=== PATIENT | male | born 1950 | race Caucasian/White ===

== ENCOUNTER → 2021-06-13 10:14 | Outpatient (BNVA) | payer OTHER, SELFPAY | PROVIDERS: PCP Internal Medicine; Visit Provider Psychiatry & Neurology Neurology | DX: G62.9 Polyneuropathy, unspecified (principal); G47.00 Insomnia, unspecified | CPT/HCPCS: 99212 ==

== ENCOUNTER → 2021-07-18 09:48 | Outpatient (BNVA) | payer MEDICARE, MEDICAID, SELFPAY | PROVIDERS: PCP Internal Medicine; Visit Provider Psychiatry & Neurology Neurology | DX: G62.9 Polyneuropathy, unspecified (principal); G47.00 Insomnia, unspecified | CPT/HCPCS: Q3014 ==

== ENCOUNTER → 2021-09-19 10:23 | Outpatient (BNVA) | payer MEDICARE, MEDICAID, SELFPAY | PROVIDERS: PCP Internal Medicine; Visit Provider Psychiatry & Neurology Neurology | DX: G62.9 Polyneuropathy, unspecified (principal); G47.00 Insomnia, unspecified; Z79.899 Other long term (current) drug therapy | CPT/HCPCS: 99212 ==

== ENCOUNTER → 2022-01-12 11:16 | Outpatient (BNVA) | payer MEDICARE, MEDICAID, SELFPAY | PROVIDERS: PCP Internal Medicine; Visit Provider Psychiatry & Neurology Neurology | DX: G62.9 Polyneuropathy, unspecified (principal); G47.00 Insomnia, unspecified; M79.672 Pain in left foot; M79.671 Pain in right foot; M25.569 Pain in unspecified knee; Z79.899 Other long term (current) drug therapy; Z79.891 Long term (current) use of opiate analgesic | CPT/HCPCS: 99212 ==

== ENCOUNTER → 2022-05-11 11:19 | Outpatient (BNVA) | payer MEDICARE, MEDICAID, SELFPAY | PROVIDERS: PCP Internal Medicine; Visit Provider Psychiatry & Neurology Neurology | DX: G62.9 Polyneuropathy, unspecified (principal); G47.00 Insomnia, unspecified | CPT/HCPCS: 99212 ==

== ENCOUNTER → 2022-11-09 12:26 | Outpatient (BNVA) | payer MEDICARE, MEDICAID, SELFPAY | PROVIDERS: PCP Internal Medicine; Visit Provider Psychiatry & Neurology Neurology | DX: G47.00 Insomnia, unspecified (principal); G62.9 Polyneuropathy, unspecified; M79.672 Pain in left foot; M79.671 Pain in right foot; C61 Malignant neoplasm of prostate | CPT/HCPCS: 99212 ==

== ENCOUNTER 2023-02-18 12:16 | Outpatient (AMB) | payer MEDICARE, MEDICAID, SELFPAY ==
--- NOTE | 2023-02-18 12:29 | MHC.OFFVIS ---
Intake Vital Signs 02/18/23 12:31 Weight 231 lb 4 oz BP 142/86 H Blood Pressure Location Rt brachial Position Sitting Pulse 96 Pulse Source Pulse Oximeter Pulse Oximetry (%) 99 Oxygen Delivery Method Room Air Intake Visit Reasons: 3m follow up-CONFIRMED Intake Note: Pt is here today fup insomnia and neuropathy, pt sleeps well, still has numbness issues Allergies No Known Allergies Allergy (Verified 02/18/23 12:34) Medication List - Last Reconciled 02/18/23 by Maddi Berrios MD allopurinol 100 mg PO DAILY amlodipine 10 mg PO DAILY cholecalciferol (vitamin D3) 25 mcg PO DAILY colchicine (gout) 0.6 mg PO DAILY coQ10 (ubiquinol) (CoQmax Ubiquinol) 200 mg PO DAILY folic acid 2 mg PO DAILY furosemide 20 mg PO DAILY gabapentin 100 mg PO BEDTIME losartan 12.5 mg PO DAILY [NeuroPure ] pregabalin 100 mg PO BID tramadol 50 mg PO DAILY trazodone 50 mg PO BEDTIME vitamin B complex (B Complex-Vitamin B12 tablet) 1 tab PO DAILY HPI HPI Comments History of Present Illness Details 71 year old male patient comes for f/u of bilateral foot pain. He is feeling better since he started Co Q 10 and neuropure .His pain is better. He is able to move his toes He is sleeping better. He had radiation for prostarte ca and is doing better. ?Pt taking Tramadol 50 mg QID for back pain He also takes trazadone 50mg qhs , pregabalin 100mg bid .gabapentin 100mg qhs Feet is tired towards the end of the day No falls ???Pt reports drink beer occasionally. ?? [facility] Medical History Stroke Kidney disease HTN (hypertension) Arthritis Alcoholic cirrhosis Surgical History Status post Mohs surgery H/O hand surgery Social History Alcohol intake: former Year quit: 7 yr Patient Tobacco Use Status: Never used Tobacco Substance Use Type: Marijuana Physical Exam Vital Signs: Last Vital Signs Pulse 96 02/18/23 12:31 BP 142/86 H 02/18/23 12:31 Pulse Ox 99 02/18/23 12:31 Oxygen Delivery Method Room Air 02/18/23 12:31 Const General: cooperative Nutritional Appearance: obese Orientation/consciousness: patient oriented x3 Limitations: no limitations HEENT Head: Yes normal to inspection Face and sinus: Yes normal facial exam Neuro General: patient oriented x3, tone normal and moves all extremities Cranial nerves: Yes Nystagmus not present, Yes Normal facial strength present and Yes Midline tongue present Gait exam (Neuro): Antalgic gait present Motor exam (neuro): 5/5 motor strength present throughout Deep tendon reflexes (DTR's): Right triceps reflex intensity grade: 1+, Left triceps reflex intensity grade: 1+, Rt Biceps (C5, C6): 1+, Left biceps reflex intensity grade: 1+, Right patellar reflex intensity grade: 1+ and Left patellar reflex intensity grade: 1+ Assessment & Plan Assessment & Plan (1) Polyneuropathy: Code(s): G62.9 - Polyneuropathy, unspecified (2) Insomnia: Code(s): G47.00 - Insomnia, unspecified Plan: Continue trazadone 50mg qhs lyrica 100mg bid suggested sleep study to evaluate . Patient declines gabapentin 100mg qhs for his night time symptoms . Coding Level of Care Code Est Pt Level 4 (39460) Diagnoses Polyneuropathy G62.9 Insomnia G47.00
[2023-02-18 12:31] VITALS: BP 142/86; PULSE 96; O2SAT 99
== END 2023-02-18 12:59 | disposition home or self-care (01) ==
PROVIDERS: PCP Internal Medicine; Visit Provider Psychiatry & Neurology Neurology
DX: G62.9 Polyneuropathy, unspecified (principal); G47.00 Insomnia, unspecified
CPT/HCPCS: 99214

== ENCOUNTER → 2023-02-18 12:16 | Outpatient (BNVA) | payer MEDICARE, MEDICAID, SELFPAY | PROVIDERS: PCP Internal Medicine; Visit Provider Psychiatry & Neurology Neurology | DX: G62.9 Polyneuropathy, unspecified (principal); G47.00 Insomnia, unspecified; Z79.899 Other long term (current) drug therapy | CPT/HCPCS: 99212 ==

== ENCOUNTER 2023-08-16 12:22 | Outpatient (AMB) | payer MEDICARE, MEDICAID, SELFPAY ==
--- NOTE | 2023-08-16 12:37 | A.OFFVIS_ITS ---
Intake Vital Signs 08/16/23 12:38 Height 5 ft 7 in Weight 230 lb BMI 36.0 BP 118/68 Blood Pressure Location Rt brachial Position Sitting Respiration 16 Pulse 72 Pulse Source Pulse Oximeter Pulse Oximetry (%) 97 Oxygen Delivery Method Room Air Intake Visit Reasons: 6 mo f/u-Insomnia/Polyneuropathy-Unable to LVM Intake Note: Pt presents for 6 month follow up for polyneuropathy and insomnia. [employer] Worker Required: No Allergies No Known Allergies Allergy (Verified 08/16/23 12:40) Medication List - Last Reconciled 08/16/23 by Maddi Berrios MD allopurinol 100 mg PO DAILY amlodipine 10 mg PO DAILY cholecalciferol (vitamin D3) 25 mcg PO DAILY colchicine 0.6 mg PO DAILY coQ10 (ubiquinol) (CoQmax Ubiquinol) 200 mg PO DAILY folic acid 2 mg PO DAILY furosemide 20 mg PO DAILY gabapentin 100 mg PO BEDTIME losartan 12.5 mg PO DAILY [NeuroPure ] pregabalin 100 mg PO BID tramadol 50 mg PO DAILY trazodone 50 mg PO BEDTIME vitamin B complex (B Complex-Vitamin B12 tablet) 1 tab PO DAILY HPI HPI Comments History of Present Illness Details 72 year old male patient comes for f/u of bilateral foot pain. He is feeling better since he started Co Q 10 and neuropure .His pain is better. He is able to move his toes . His foot pain fluctuates. He has andrae knee arthritis and has a procedure scheduled. He is sleeping better. He had radiation for prostrate cancer and is in remission. ?Pt taking Tramadol 50 mg QID for back pain He also takes trazadone 50mg qhs , pregabalin 100mg bid .gabapentin 100mg qhs Feet is tired towards the end of the day No falls ???Pt reports drinks beer occasionally. ?? PFSH Medical History Stroke Kidney disease HTN (hypertension) Arthritis Alcoholic cirrhosis Surgical History Status post Mohs surgery H/O hand surgery Social History Alcohol intake: former Year quit: 7 yr Patient Tobacco Use Status: Never used Tobacco Substance Use Type: Marijuana Physical Exam Vital Signs: Last Vital Signs Pulse 72 08/16/23 12:38 Resp 16 08/16/23 12:38 BP 118/68 08/16/23 12:38 Pulse Ox 97 08/16/23 12:38 Oxygen Delivery Method Room Air 08/16/23 12:38 BMI result Body Mass Index 36.0 Const General: cooperative Nutritional Appearance: obese Orientation/consciousness: patient oriented x3 Limitations: no limitations HEENT Head: Yes normal to inspection Face and sinus: Yes normal facial exam Neuro General: patient oriented x3, tone normal and moves all extremities Cranial nerves: Yes Nystagmus not present, Yes Normal facial strength present and Yes Midline tongue present Gait exam (Neuro): Antalgic gait present Motor exam (neuro): 5/5 motor strength present throughout Deep tendon reflexes (DTR's): Right triceps reflex intensity grade: 1+, Left triceps reflex intensity grade: 1+, Rt Biceps (C5, C6): 1+, Left biceps reflex intensity grade: 1+, Right patellar reflex intensity grade: 1+ and Left patellar reflex intensity grade: 1+ Assessment & Plan Assessment & Plan (1) Polyneuropathy: Code(s): G62.9 - Polyneuropathy, unspecified (2) Insomnia: Code(s): G47.00 - Insomnia, unspecified Plan Continue trazadone 50mg qhs lyrica 100mg bid suggested sleep study to evaluate . Patient declines Increase gabapentin 300mg qhs for his night time symptoms . Medications: Changed From gabapentin 100 mg PO BEDTIME 30 caps 6RF To gabapentin 300 mg PO BEDTIME 30 caps 6RF Coding Level of Care Code Est Pt Level 4 (52989) Diagnoses Polyneuropathy G62.9 Insomnia G47.00
[2023-08-16 12:38] VITALS: BP 118/68; PULSE 72; RESP 16; O2SAT 97; BMI 36.0
== END 2023-08-16 12:57 | disposition home or self-care (01) ==
PROVIDERS: PCP Internal Medicine; Visit Provider Psychiatry & Neurology Neurology
DX: G62.9 Polyneuropathy, unspecified (principal); G47.00 Insomnia, unspecified
CPT/HCPCS: 99214

== ENCOUNTER → 2023-08-16 12:22 | Outpatient (BNVA) | payer MEDICARE, MEDICAID, SELFPAY | PROVIDERS: PCP Internal Medicine; Visit Provider Psychiatry & Neurology Neurology | DX: G62.9 Polyneuropathy, unspecified (principal); G47.00 Insomnia, unspecified | CPT/HCPCS: 99212 ==

== ENCOUNTER 2024-02-15 12:22 | Outpatient (AMB) | payer MEDICARE, MEDICAID, SELFPAY ==
--- NOTE | 2024-02-15 12:36 | A.OFFVIS_ITS ---
Vital Signs 02/15/24 12:37 Height 5 ft 7 in Weight 242 lb BMI 37.9 BP 130/82 Blood Pressure Location Rt brachial Position Sitting Respiration 16 Pulse 75 Pulse Source Pulse Oximeter Pulse Oximetry (%) 96 Oxygen Delivery Method Room Air Intake Visit Reasons: 6 mo f/u Intake Note: Pt presents to the office for a 6 month follow up for polyneuropathy. Pt reports right heel pain, constant, and does not radiate. He states he cannot bare weight on it most days. Columnist/Commentator Required: No Allergies No Known Allergies Allergy (Verified 02/15/24 12:36) Medication List - Last Reconciled 02/15/24 by Maddi Berrios MD allopurinol 100 mg PO DAILY amlodipine 10 mg PO DAILY cholecalciferol (vitamin D3) 25 mcg PO DAILY colchicine 0.6 mg PO DAILY coQ10 (ubiquinol) (CoQmax Ubiquinol) 200 mg PO DAILY folic acid 2 mg PO DAILY furosemide 20 mg PO DAILY gabapentin 300 mg PO BEDTIME losartan 12.5 mg PO DAILY [NeuroPure ] pregabalin 100 mg PO BID tramadol 50 mg PO DAILY trazodone 50 mg PO BEDTIME vitamin B complex (B Complex-Vitamin B12 tablet) 1 tab PO DAILY HPI Comments Details: 73 year old male patient comes for f/u of bilateral foot pain.He has been havin g severe right heel pain for past 1 week .The pain is worse when he is walking or applies pressure . He has andrae knee arthritis and has a procedure scheduled. He is sleeping better. He had radiation for prostrate cancer and is in remission. ?Pt taking Tramadol 50 mg QID for back pain He also takes trazadone 50mg qhs , pregabalin 100mg bid .gabapentin 100mg qhs Feet is tired towards the end of the day No falls ???Pt reports drinks beer occasionally. ?? [facility] Medical History (Updated 02/15/24 @ 12:53 by Maddi Berrios MD) Intractable right heel pain Stroke Kidney disease HTN (hypertension) Arthritis Alcoholic cirrhosis Surgical History Status post Mohs surgery H/O hand surgery Social History Alcohol intake: former Year quit: 7 yr Patient Tobacco Use Status: Never used Tobacco Substance Use Type: Marijuana Physical Exam Vital Signs: Last Vital Signs Pulse 75 02/15/24 12:37 Resp 16 02/15/24 12:37 BP 130/82 02/15/24 12:37 Pulse Ox 96 02/15/24 12:37 Oxygen Delivery Method Room Air 02/15/24 12:37 BMI result Body Mass Index 37.9 Const General: cooperative Nutritional Appearance: obese Orientation/consciousness: patient oriented x3 Limitations: no limitations HEENT Head: Yes normal to inspection Face and sinus: Yes normal facial exam Neuro General: patient oriented x3, tone normal and moves all extremities Cranial nerves: Yes Nystagmus not present, Yes Normal facial strength present and Yes Midline tongue present Gait exam (Neuro): Antalgic gait present Motor exam (neuro): 5/5 motor strength present throughout Deep tendon reflexes (DTR's): Right triceps reflex intensity grade: 1+, Left triceps reflex intensity grade: 1+, Rt Biceps (C5, C6): 1+, Left biceps reflex intensity grade: 1+, Right patellar reflex intensity grade: 1+ and Left patellar reflex intensity grade: 1+ Extrem Other: tenderness in the right heel- plantar surface Assessment & Plan Assessment & Plan (1) Polyneuropathy: Code(s): G62.9 - Polyneuropathy, unspecified Category: Medical (2) Insomnia: Code(s): G47.00 - Insomnia, unspecified Category: Medical (3) Intractable right heel pain: Code(s): M79.671 - Pain in right foot Category: Medical Plan Refer to pain management and podiatry discuss with PCP Continue trazadone 50mg qhs lyrica 100mg bid suggested sleep study to evaluate . Patient declines gabapentin 300mg qhs for his night time symptoms . Orders: Referrals Pain Management Referral M79.671 - Pain in right foot Podiatry Referral M79.671 - Pain in right foot Coding Level of Care Code Est Pt Level 4 (62717) Diagnoses Polyneuropathy G62.9 Insomnia G47.00 Intractable right heel pain M79.671
[2024-02-15 12:37] VITALS: BP 130/82; PULSE 75; RESP 16; O2SAT 96; BMI 37.9
== END 2024-02-15 13:03 | disposition home or self-care (01) ==
PROVIDERS: PCP Internal Medicine; Visit Provider Psychiatry & Neurology Neurology
DX: G62.9 Polyneuropathy, unspecified (principal); G47.00 Insomnia, unspecified; M79.671 Pain in right foot
CPT/HCPCS: 99214

== ENCOUNTER → 2024-02-15 12:22 | Outpatient (BNVA) | payer MEDICARE, MEDICAID, SELFPAY | PROVIDERS: PCP Internal Medicine; Visit Provider Psychiatry & Neurology Neurology | DX: G62.9 Polyneuropathy, unspecified (principal); G47.00 Insomnia, unspecified; M79.671 Pain in right foot | CPT/HCPCS: 99212 ==

== ENCOUNTER 2024-07-14 12:27 | Outpatient (AMB) | payer MEDICARE, MEDICAID, SELFPAY ==
[2024-07-14 12:32] VITALS: BP 110/72; PULSE 56; O2SAT 96; BMI 35.4
--- NOTE | 2024-07-14 12:32 | A.OFFVIS_ITS ---
Vital Signs 07/14/24 12:32 Height 5 ft 7 in Weight 226 lb BMI 35.4 BP 110/72 Blood Pressure Location Rt brachial Position Sitting Pulse 56 Pulse Source Pulse Oximeter Pulse Oximetry (%) 96 Oxygen Delivery Method Room Air Intake Visit Reasons: Follow Up Intake Note: Patient presents for follow up referred to podiatry at [facility] and pain management at [facility]. [place] [facility] [place] if he attended these appointments Allergies No Known Allergies Allergy (Verified 07/14/24 12:34) HPI Comments Details: 73 year old male patient comes for f/u of bilateral foot pain.The pain is worse before he goes to bed.with gabapentin 300mg and pregabalin 100mg he is able to sleep.His daytime pain is manageable. He had radiation for prostrate cancer and is in remission. ?Pt taking Tramadol 50 mg QID for back pain No falls ???Pt reports drinks beer occasionally. He talks about new options for neuropathy - that he sees on social media and [employer] and wants to know more details. ?? [facility] Medical History Intractable right heel pain Stroke Kidney disease HTN (hypertension) Arthritis Alcoholic cirrhosis Surgical History Status post Mohs surgery H/O hand surgery Social History Alcohol intake: former Year quit: 7 yr Patient Tobacco Use Status: Never used Tobacco Substance Use Type: Marijuana Physical Exam Vital Signs: Last Vital Signs Pulse 56 07/14/24 12:32 BP 110/72 07/14/24 12:32 Pulse Ox 96 07/14/24 12:32 Oxygen Delivery Method Room Air 07/14/24 12:32 BMI result Body Mass Index 35.4 Const General: cooperative Nutritional Appearance: obese Orientation/consciousness: patient oriented x3 Limitations: no limitations HEENT Head: Yes normal to inspection Face and sinus: Yes normal facial exam Neuro General: patient oriented x3, tone normal and moves all extremities Cranial nerves: Yes Nystagmus not present, Yes Normal facial strength present and Yes Midline tongue present Gait exam (Neuro): Antalgic gait present Motor exam (neuro): 5/5 motor strength present throughout Extrem Other: tenderness in the right heel- plantar surface Assessment & Plan Assessment & Plan (1) Polyneuropathy: Code(s): G62.9 - Polyneuropathy, unspecified Category: Medical (2) Insomnia: Code(s): G47.00 - Insomnia, unspecified Category: Medical Qualifiers: Insomnia type: unspecified Qualified Code(s): G47.00 - Insomnia, unspecified (3) Intractable right heel pain: Code(s): M79.671 - Pain in right foot Category: Medical Plan discuss with PCP Pain management Continue trazadone 50mg qhs lyrica 100mg bid suggested sleep study to evaluate . Patient declines gabapentin 300mg qhs for his night time symptoms . Coding Level of Care Code Est Pt Level 4 (84365) Diagnoses Polyneuropathy G62.9 Insomnia, unspecified type G47.00 Insomnia type: unspecified Intractable right heel pain M79.671
--- OUTSIDE RECORDS SUMMARY | 2024-07-14 13:06 | XMS_ITS ---
Author Organization [facility] Address [address] [place] [address] Care Team Providers Care Hims Clerk Name Role Phone Jimmy Kent NP Primary Care Provider Unavaila Kandace Guevara [phone] REASON FOR VISIT ON Encounters Encounter Location Date Provider Diagnosis [facility] [address] [place] [address] 03/20/2024 Kandace Sultana Plan Of Treatment No Information Progress Notes * Howard OMALLEY RDOB: [birth year] (73 yo M)Acc No.[id number]:03/20/2024 Patient:?Howard Omalley :1950???Age:73 Y???Sex:Male Address:[address] [place] [phone] * true * Date:? Generated for Printi renee/Fajohan/eTransmitting on:?07/14/2024 01:06 PM EST
--- OUTSIDE RECORDS SUMMARY | 2024-07-14 13:06 | XMS_ITS | Clinical Summary ---
Author Organization [employer] Address [address] [facility] [address] [place] [address] Care Team Providers Care Asthma Educator Name Role Phone Unavailable Primary Care Provider Unavailabl e Social History Tobacco Use Types Packs/Day Years Used Date Smoking Tobacco: Never Assessed Sex and Gender Information Value Date Recorded Sex Assigned at Male 03/23/2022 10:27 AM EDT Legal Sex Male 10:27 AM EDT Gender Identity Male 03/23/2022 10:27 AM EDT Sexual Orientation Choose not to disclose 2021 10:27 AM EDT Plan of Treatment Health Maintenance Due Date Last Done Comments CT Colonography 1950 Colonoscopy 1950 Colorectal Cancer Screening 1950 Depression Screening 1950 FIT DNA/Cologuard 1948 FIT 1950 FOBT 1950 Lipid Panel 1950 Sigmoidoscopy 1948 Alcohol/Substance Use Screening 1960 Tobacco Screening 1960 DTaP/Tdap/Td Vaccines (1 - Tdap) 12/27/1967 Pneumococcal Vaccine: 50+ Ye ars (1 of 1 - PCV) 1998 Zoster Vaccines (1 of 2) 1998 RSV Patients and Pa tients Aged 60 years or older (1 - 1-dose 75+ series) 12/27/2023 COVID-19 Vaccine ( - 2023-2 5 season) 2024 Influenza Vaccine (#1) 2024 HIB Vaccines Aged Out No longer eligi ble based on patient's age to complete this topic HPV Vaccines Aged Out No longer eligi ble based on patient's age to complete this topic Hepatitis A Vaccines Aged Out No long er eligible based on patient's age to complete this topic Hepatitis B Vaccines Aged Out No long er eligible based on patient's age to complete this topic IPV Vaccines Aged Out No longer eligi ble based on patient's age to complete this topic Meningococcal Vaccine Aged Out No jennifer deisy eligible based on patient's age to complete this topic RSV under 20 months Aged Out No longe r eligible based on patient's age to complete this topic Rotavirus Vaccines Aged Out No longer eligible based on patient's age to complete this topic
--- OUTSIDE RECORDS SUMMARY | 2024-07-14 13:06 | XMS_ITS | Clinical Summary ---
Author Organization [facility] Address [address] [address] Phone Care Team Providers Care Cat Dog Or Other Pet Groomer Name Role Phone Demar Calvert MD Primary Care Provider [phone] Allergies No known active allergies Medications allopurinol (ZYLOPRIM) 100 MG tablet Take 1 tablet by mouth 1 (one) time each day 02/15/2015 Active amLODIPine (NORVASC) 10 MG tablet 07/25/2020 Active B Complex capsule Take 1 tablet by mouth 1 (one) time each day 05/29/2020 Active colchicine 0.6 MG tablet Take 1 tablet by mouth 1 (one) time each day Active folic acid (FOLVITE) 1 MG tablet Take 1 tablet by mouth 1 (one) time each day 01/15/2016 Active furosemide (LASIX) 20 MG tablet Take 1 tablet by mouth 1 (one) time each day 02/21/2015 Active Melatonin 10 MG tablet Take by mouth Active traMADol (ULTRAM) 50 MG tablet Take 50 mg by mouth every 6 (six) hours if needed 05/07/2020 Active traZODone (DESYREL) 50 MG tablet Take 50 mg by mouth 1 (one) time each day in the evening 01/20/2021 Active Cholecalciferol (Vitamin D) 25 MCG (1000 UT) tablet TAKE 1 TABLET BY MOUTH EVERY DAY 90 tablet 3 06/02/2021 Active pregabalin (LYRICA) 25 MG capsule Take 25 mg by mouth in the morning and 25 mg in the evening. 07/11/2021 Active gabapentin (NEURONTIN) 300 MG capsule Take 300 mg by mouth 1 (one) time each day Active losartan (COZAAR) 25 MG tablet TAKE 1/2 TABLET BY MOUTH EVERY DAY (AUROBINDO BRAND ONLY) 45 tablet 3 10/10/2023 Active Active Problems Problem Noted Date Diagnosed Date Hepatic ascites 07/29/2020 Hyperkalemia 07/29/2020 Overview (08/31/2023): Follow low K diet Assessment & Plan (08/31/2023 11:27 AM EDT): History of this though K was WNL at 4.5 as of 07/2022 Rechecking Renal panel today Hypertensive renal disease 07/29/2020 Alcoholic liver damage 07/05/2020 Stage 3b chronic kidney disease 07/05/2020 Chronic pain syndrome 07/05/2020 Disorder of the skin and subcutaneous tissue, un specified 07/05/2020 Hyperlipidemia 07/05/2020 Other cirrhosis of liver 07/05/2020 Unspecified hearing loss, unspecified ear 2020 Hypertension 03/05/2020 Overview (08/31/2023): Follow low NA diet Avoid NSAIDs/OTC Decongestant medications Target BP <120/80 Assessment & Plan (08/31/2023 11:22 AM EDT): Blood pressure well controlled, 118/82 HR 66 today Taking Amlodipine 10 mg QD, Furosemide 20 mg QD and Losartan 25 mg 1/2 tab QD No Edema NO medication changes made today Will continue to monitor Primary gout 03/05/2020 Stage 3a chronic kidney disease Overview (08/31/2023): R/t chronic glomerular scarring to due to multifactorial reasons/Age With mild proteinuria Avoid Nephrotoxins On ARB Assessment & Plan (08/31/2023 11:19 AM EDT): Stable Creat 1.5, eGFR 48 as of 07/31/2022 Rechecking Renal panel, Urine alb/creat ratio, CBC and MBD levels today Secondary hyperparathyroidism of renal origin Overview (08/31/2023): Target iPTH for CKD Stage 3b is 35-70 Monitor Ca, PO4, iPTH Q 6 mos Assessment & Plan (08/31/2023 11:24 AM EDT): Last iPTH was elevated at 103 as of 07/2022 with normal Ca/PO4 Rechecking these today Consider low dose Calcitriol if iPTH remains >100 On Vitamin D 25 daily supplement - Level WNL at 32 as of 07/2022 - rechecking Family History Medical History Relation Comments Diabetes Father Hypertension Mother Relation Status Comments Father Mother Social History Tobacco Use Types Packs/Day Years Used Date Smoking Tobacco: Former Smokeless Tobacco: Never Tobacco Cessation:Counseling Given: Not Answered Comments:Smoking History Info:Unknown Alcohol Use Standard Drinks/Week Comments Yes 0 (1 standard drink = 0.6 oz pure alcohol) Alcoholic Drinks/day: 3 or more drinks per day Sex and Gender Information Value Date Recorded Sex Assigned at Not on file Legal Sex Male 5:09 PM EST Gender Identity Not on file Sexual Orientation Not on file Last Filed Vital Signs Vital Sign Reading Time Taken Comments Blood Pressure 124/82 03/06/2024 3:20 PM EDT Pulse 65 03/06/2024 3:20 PM EDT Temperature - - Respiratory Rate - - Oxygen Saturation 96% 07/28/2021 3:23 PM EST Inhaled Oxygen Concentration - - Weight 104 kg (230 lb) 03/06/2024 3:20 PM EDT Height 172.7 cm (5' 8 ) 07/28/2021 3:23 PM EST Body Mass Index 34.97 07/28/2021 3:23 PM EST Plan of Treatment Upcoming Encounters Date Type Department Care Team (Late st Contact Info) Description 07/31/2024 Orders Only [facility] [address] [phone] Bennie Rico MD [address] [phone] Stage 3a chronic kidney disease (HCC); Hypertensive renal disease; Primary gout 09/11/2024 1:30 PM EDT Office Visit [facility] [address] [phone] Bennie Rico MD [address] [address] Health Maintenance Due Date Last Done Comments Pneumococcal Vaccine: 65+ Years (1 of 2 - PCV) 950 Colorectal Cancer Screening: Annual FOBT 1997 Colorectal Cancer Screening: Colonoscopy 1997 Colorectal Cancer Screening: Sigmoidoscopy 1997 Hepatitis B Vaccine (1 of 3 - Risk 3-dose series) 09/2008 Influenza Vaccine (#1) 2024 Insurance [facility] ([id number]) [facility] ([id number]) Care Teams Cat Dog Or Other Pet Groomer Relationship Specialty Start Date End Date Demar Calvert MD [address] [place] [id number] PCP - General 06/03/20
--- OUTSIDE RECORDS SUMMARY | 2024-07-14 13:06 | XMS_ITS | Encounter Summary ---
Author Organization [employer] Address [address] [facility] [address] [place] [address] Care Team Providers Care Android Ui Developer Name Role Phone Unavailable Primary Care Provider Unavailabl e Encounter Details Date Type Department Care Team (Latest Contact Info) Description 12/30/2021 [facility] Dental, Provider, DDS Social History Tobacco Use Types Packs/Day Years Used Date Smoking Tobacco: Never Assessed Sex and Gender Information Value Date Recorded Sex Assigned at Male 03/23/2022 10:27 AM EDT Legal Sex Male 10:27 AM EDT Gender Identity Male 03/23/2022 10:27 AM EDT Sexual Orientation Choose not to disclose 2021 10:27 AM EDT documented as of this encounter Plan of Treatment Not on file documented as of this encounter Visit Diagnoses Not on filedocumented in this encounter
--- OUTSIDE RECORDS SUMMARY | 2024-07-14 13:06 | XMS_ITS ---
Author Organization [facility] Address [address] [place] [address] Care Team Providers Care Precast Concrete Products Installer Name Role Phone SH[place]LE MOORE Unavailable [phone] REASON FOR VISIT call cardiology Encounters Encounter Location Date Provider Diagnosis [facility] [address] [facility] [address] [place] [address] 04/11/2024 ORVILLE FLAHERTY PLAN OF TREATMENT Next Appt Details Provider Name:ORVILLE FLAHERTY, 08/08/2024 02:15:00 PM, [address], [facility] [address], [place], [address], Progress Notes * EDINSON OMALLEY RDOB: [birth year] (73 yo M)Acc No.[id number]:04/11/2024 Patient:??EDINSON OMALLEY :1950?Age:73 Y?Sex:Irina elizalde Address:[address] [place] [address], [place] [address] * true * Date:??
--- OUTSIDE RECORDS SUMMARY | 2024-07-14 13:06 | XMS_ITS ---
Author Organization [facility] Address [address] [place] [address] Care Team Providers Care Continuity Writer Name Role Phone SHARDAORVILLE MOORE Unavailable [phone] Encounters Encounter Location Date Provider Diagnosis [facility] [address] [address] 04/11/2024 ORVILLE FLAHERTY PLAN OF TREATMENT Next Appt Details Provider Name:ORVILLE FLAHERTY, 08/08/2024 02:15:00 PM, [address] [address], [place], [address], Progress Notes * EDINSON OMALLEY RDOB: [birth year] (73 yo M)Acc No.[id number]:04/11/2024 Patient:??EDINSON OMALLEY :1950?Age:73 Y?Sex:Irina elizalde Address:[address] [place] [id number] * true * Date:??
--- OUTSIDE RECORDS SUMMARY | 2024-07-14 13:06 | XMS_ITS | Encounter Summary ---
Author Organization [employer] Address [address] [facility] [address] [place] [address] Care Team Providers Care Instructor Business Education Name Role Phone Unavailable Primary Care Provider Unavailabl e Encounter Details Date Type Department Care Team (Latest Contact Info) Description 07/25/2018 Abstract [facility] CONVERSIONS Dental, Provider, DDS Social History [...]
--- OUTSIDE RECORDS SUMMARY | 2024-07-14 13:06 | XMS_ITS ---
Author Organization [facility] Address [address] [place] [address] Care Team Providers Care Mail List Librarian Name Role Phone Yoli ALCAZAR, Jimmy Primary Care Provider Kandace Aguilar Unavailable [phone] Allergies No Known Allergies REASON FOR VISIT Last PCP visit 03/2024, Painful ingrown nail(s) Medications Medication SIG (Take, Route, Frequency, Duration) Notes Start Date End Date Status Vitamin D3 1000 UNIT 1 tablet Orally Onc e a day for 30 day(s) 11/07/2018 Active Tgzioxa-Fynkekbtty-Qzmoi Seed 900-100-100 MG as directed Orally Ac tive Super B Complex/Vitamin C - as directed Orally Active traZODone HCl 100 MG Oral for 90 Active Losartan Potassium 25 MG Oral for 90 Active Colchicine 0.6 MG Oral for 90 Active Folic Acid 1 MG 1 tablet Orally Once a day for 30 day(s) 11/07/2018 Active Calcium 500 +D Activ e Gabapentin 300 MG Oral for 90 Active Furosemide 20 MG Oral for 90 A ctive amLODIPine Besylate 10 MG Oral for 90 Active Eliquis 5 MG as directed Orally Active Allopurinol 100 MG Oral for 90 Active Social History Tobacco Use: Social History Observation Description Date Details (start date - stop date) Never Smoker NA - NA Alcohol Screen Question Answer Notes Did you have a drink containing alcohol in the p ast year? No Points 0 Interpretation Negative Tobacco use other than smoking: Question Answer Notes Are you an other tobacco user? No Tobacco Control (Standard) Question Answer Notes Tobacco use: Nonsmoker Additional Findings: Tobacco non-user Current no nsmoker Vital Signs Height 5ft 8in in 06/06/2024 Weight 225 lbs 06/06/2024 BMI 34.21 kg/m2 06/06/2024 Blood pressure systolic 134 mm Hg 06/06/19 25 Blood pressure diastolic 62 mm Hg 025 Procedures Procedure Date Ordered Date Performed Result Body Sit e 84889-Ykhhyuzt Plate 06/06/2024 N/A 39033-Yzsyoumr Plate Each Additional 06/06/2024 N/A Encounters Encounter [facility] Date [facility] [address] [address] 06/06/2024 Kandace Sultana Ingrowing nail L60.0 Assessments Encounter Date Diagnosis (ICD Code) Assessment Notes Treatment Notes Treatment Clinical Notes Section Notes 06/06/2024 Ingrowing nail (ICD-10 - L60.0) Plan Of Treatment Pending Test Test Name Order Date [id number]-Oyvjkvvr Plate 06/06/2024 41110-Mhxjdmom Plate Each Additional Next Appt Details Follow Up: prn, Reason: Procedure Notes * Category Sub-Category Detail Notes Nail Avulsion Procedure A fine sterile e levator was used to loosen the eponychium, nail bed, nail plate and groove. A sterile nail splitter was then used to longitudinally section the nail. This section was removed. No underlying bone was identified. A bacitracin sterile dressing was applied; local wound care instructions were dispensed. The patient was informed of both conservative and future surgical procedures to prevent recurrence Anesthesia was accomplished TOP ICALLY with Lidocaine Hydrochloride Jelly 2 percent Location Bilateral nail borde r, TA, T5 Progress Notes * Howard OMALLEY RDOB: [birth year] (73 yo M)Acc No.[id number]:06/06/2024 Progress Notes Patient:?Howard OMALLEY Provider:?Kandace Sultana DPM :1950???Age:73 Y???Sex:Male Olvin e:06/06/2024 Address:[address] [place], [place] [id number] Pcp:Jimmy Kent NP Subjective: * Chief Complaints: * ???Last PCP visit ai nful ingrown nail(s) * HPI: ???Ingrown toenail:?Location:?Great toe, Both feet.?Onset/Cause:?gradual.?Aggravated by:?bed covers, any pressure.?Severity/Quality:?moderate.? * ROS:?General/Constitutional:?Nausea?denies.?Vomiting?denies.?Hunger Thirst?denies.?Loss appetite?denies.?Chills?denies.?Fatigue?denies.?Fever?denies.?Night Sweats?denies.?Unexplained weight loss?denies.?Unexplained weight gain?denies.?HEENTM:?Dentures?denies.?Dizziness?denies.?Glasses/contacts?denies.?Retinopathy?de nies.?Blurred/double vision?denies.?TMJ?denies.?Discharge/drainage?denies.?Implants?denies.?Sore throat?denies.?Dental implants?denies.?Hard of hearing ?admits.?Difficulty chewing/swallowing/speaking?denies.?Nose bleeds?denies.?Sore mouth?denies.?Respiratory:?On Oxygen?denies.?Pneumonia/pleurisy?denies.?Bronchitis?denies.?Emphysema?denies.?C oughing?denies.?Cough blood?denies.?Shortness of breath?denies.?Wheezing?denies.?Cardiovascular:?Pacemaker?denies.?MVP?denies.?WPW?denies.?CHF?denies.?Heart attack?denies.?Septal defect?denies.?Rapid beat?denies.?Chest pain ?denies.?Atrial Fib.?denies.?Murmur/Palpitations?denies.?Gastrointestinal:?Hemorrhoids?denies.?Stomach/Abdominal pain?denies.?Dark blood stool?denies.?Irritable bowel ?denies.?Constipation?denies.?Diarrhea?denies.?Hematology:?Swelling?denies.?Clots?denies.?Varicose Veins?denies.?Bruising?denies.?Bleeding problem?denies.?Genitourinary:?Blood urine?denies.?Frequent/Painfu/urination/bladder control?denies.?Kidney stones?denies.?Infection (UTI)?denies.?Nephropathy?denies.?sex trans dis (STD)?denies.?Prostate?denies.?Musculoskeletal:?Hammertoes?denies.?Bunions?denies.?Back Pain?denies.?Muscle Cramps/ Resting?denies.?Muscle cramps / walking?denies.?Generalized aches and pains?denies.?Weakness?denies.?Integ.:?Magana?denies.?Scars?denies.?Corns/calluses?denies.?Ingrown nails?admits.?Painful nails?denies.?Open Sores?denies.?Rashes?denies.?Neurologic:?Difficulty sleeping?denies.?Brain disorder?denies.?Numbness?denies.?Balance trouble?denies.?Confusion?denies.?Fainting/blackouts?denies.?Tingling?denies.?Tr emors?denies.? * Medical History:? * Surgical History:?wrist surg gerry 11/01/17 * Hospitalization/Major Diagno stic Procedure:?No Hospitalization History. * Family History:?Mother: dece ased.?Father: .? * Social History:?Tobacco Use:?Tobacco use other than smoking?Are you an other tobacco user??No ?Tobacco Control (Standard)?Tobacco use:?Nonsmoker ?Additional Findings: Tobacco non-user?Current nonsmoker ???Drugs/Alcohol:?Drugs?Have you used drugs other than those for medical reasons in the past 12 months??Yes ?Marijuana??Yes ?Alcohol Screen?Did you have a drink containing alcohol in the past year??No ?Points?0 ?Interpretation?Negative ???Miscellaneous:?Caffeine: yes, 1.5 liter soda per day. ?Children: no, none. ?Exercise: yes, gardening, movies, visit friends. ?Marital status: single. ?Occupation: retired. * Medications:?TakingEliquis 5 MG Tablet as directed Orally Allopurinol 100 MG Tablet Oral amLODIPine Besylate 10 MG Tablet Oral Calcium 500 +D Colchicine 0.6 MG Tablet Oral Folic Acid 1 MG Tablet 1 tablet Orally Once a day Furosemide 20 MG Tablet Oral Gabapentin 300 MG Capsule Oral Losartan Potassium 25 MG Tablet Oral Super B Complex/Vitamin C - Tablet as directed Orally traZODone HCl 100 MG Tablet Oral Vitamin D3 1000 UNIT Tablet 1 tablet Orally Once a day Pzxkiuo-Lrqjukhntl-Ewbjf Seed 900-100-100 MG Tablet as directed Orally Medication List reviewed and reconciled with the patientTaking Eliquis 5 MG Tablet as directed Orally Taking Allopurinol 100 MG Tablet Oral Taking amLODIPine Besylate 10 MG Tablet Oral Taking Calcium 500 +D Taking Colchicine 0.6 MG Tablet Oral Taking Folic Acid 1 MG Tablet 1 tablet Orally Once a day Taking Furosemide 20 MG Tablet Oral Taking Gabapentin 300 MG Capsule Oral Taking Losartan Potassium 25 MG Tablet Oral Taking Super B Complex/Vitamin C - Tablet as directed Orally Taking traZODone HCl 100 MG Tablet Oral Taking Vitamin D3 1000 UNIT Tablet 1 tablet Orally Once a day Taking Qkhcwnl-Jtvnkuzdkp-Oqcac Seed 900-100-100 MG Tablet as directed Orally Medication List reviewed and reconciled with the patient * Allergies:?N.K.D.A.yes[Aller gies Verified] Objective: * Vitals:?Ht: 5ft 8in, Wt:225, BMI:34.21, Shoe size: 8, BP:134/62mm Hg, Ht-cm: 172.72 cm, Wt-k.06 kg. * Examination: ???Ingrown Nail: ?INSPECTION:?Reveals nail incurvation, pain on palpation, groove hypertrophy, Bilateral nail borders, TA, T5.?Vascular: ?DP PULSES (B):?2/4, B/L.?PT PULSES (B):?2/4, B/L.?CAPILLARY FILL TIME:?3 secs. per digit, B/L.?TROPHIC CONDITION-TEXTURE/ELASTICITY/TURGOR/HAIR GROWTH (B):?normal, B/L.?TEMPERTURE GRADIENT (C):?warm to cool, proximal to distal, B/L.?PIGMENTATION:?normal, B/L.?EDEMA (C):?no edema.?TELANGECTASIA:?absent.?VARICOSITIES:?absent.?General Examination: ?GENERAL APPEARANCE:?pleasant, alert, well nourished, well developed, well hydrated, with good attention to hygene/body habitus, and in no acute distress.?ORIENTED:?person,place, and time.? Assessment: * Assessment: 1.?Ingrowing nail - L60.0 (P rimary)???Specify :Bilateral nail border, TA, T5??? Plan: * Treatment: * Procedures:?Nail Avulsion:?Location?Bilateral nail border, TA, T5.?Anesthesia??was accomplished TOPICALLY with Lidocaine Hydrochloride Jelly 2 percent.?Procedure?A fine sterile elevator was used to loosen the eponychium, nail bed, nail plate and groove. A sterile nail splitter was then used to longitudinally section the nail. This section was removed. No underlying bone was identified. A bacitracin sterile dressing was applied; local wound care instructions were dispensed. The patient was informed of both conservative and future surgical procedures to prevent recurrence.? * Procedure Codes:?47232 Avuls ion Plate, Modifiers: XS , [id number] Avulsion Plate Each Additional, Modifiers: XS , T5 * Follow Up:?prn * Images: * Sign off status: Completed true * Provider:?Kandace Sultana DPM Date:?0 06/06/2024 Generated for Charlotte duran/Logan/Mack on:?07/14/2024 01:06 PM EST History and Physical Notes * HPI (History of Present Illness) Category Sub-Category Detail Notes Category Not es Ingrown toenail Severity/Quality: moderate Location: Great toe, Both feet Aggravated by: bed covers, any pres sure Onset/Cause: gradual Examination Category Sub-Category Detail Notes Category Not es Ingrown Nail INSPECTION: Reveals nail inc urvation, pain on palpation, groove hypertrophy, Bilateral nail borders, TA, T5 General Examination GENERAL APPEARANCE: pleasant , alert, well nourished, well developed, well hydrated, with good attention to hygene/body habitus, and in no acute distress ORIENTED: person,place, and ti me Vascular DP PULSES (B): 2/4, B/L PT PULSES (B): 2/4, B/L CAPILLARY FILL TIME: 3 secs. per digit, B/L TEMPERTURE GRADIENT (C): warm to cool, p roximal to distal, B/L TROPHIC CONDITION-TEXTURE/ELASTICITY/TURGOR/HAIR GROWTH (B): normal, B/L EDEMA (C): no edema TELANGECTASIA: absent VARICOSITIES: absent PIGMENTATION: normal, B/L
--- OUTSIDE RECORDS SUMMARY | 2024-07-14 13:07 | XMS_ITS ---
Author Organization [facility] Address [address] [place] [address] Care Team Providers Care Climate Change Analyst Name Role Phone REYNOLD ORVILLE Unavailable [phone] MEDICATIONS Medication SIG (Take, Route, Frequency, Duration) Notes Start Date End Date Status traMADol HCl 50 MG 1 tablet as needed Orally every 6 hours for 30 days Active traZODone HCl 50 MG TAKE 1 TABLET BY MOUTH EVERYDAY AT BEDTIME for 90 Active Vitamin B Complex - TAKE 1 TABLET BY MOUTH EVERY DAY for 90 Active Allopurinol 100 MG TAKE 1 TABLET BY MOUTH EVERY DAY DIRECTED for 90 Active Colchicine 0.6 MG TAKE 1 TABLET AT BEDTIME. Orally Once a day for 30 days Active Furosemide 20 MG TAKE 1 TABLET BY MOUTH EVERY DAY for 90 Active Colchicine 0.6 MG TAKE 1 TABLET BY MOUTH EVERYDAY AT BEDTIME for 90 Active Vitamin D3 25 MCG (1000 UT) TAKE 1 TABLET BY MOUTH EVERY DAY for 90 Active Apixaban 5 MG 5mg Orally Twice a day for 90 days 03/27/2024 Active predniSONE 50 MG 1 tablet Orally Once a day for 7 days 03/01/2024 Not-Taking Gabapentin 100 MG 1 capsule before bedtime Orally Once a day for 90 days Active Folic Acid 1 MG TAKE 2 TABLETS BY MOUTH EVERY DAY for 90 Active Melatonin 10 MG 1 tablet at bedtime as needed with food Orally Once a day for 30 days 10/10/2018 Active Losartan Potassium 25 MG 1 tablet Orally Once a day for 90 days undefined 09/15/2017 Active amLODIPine Besylate 10 MG TAKE 1 TABLET BY MOUTH EVERY DAY for 90 Active Pregabalin 75 MG 1 capsule Orally Twice a day Active Encounters Encounter Location Date Provider Diagnosis [facility] [address] [address] 06/27/2024 ORVILLE FLAHERTY Hyperlipidemia, unspecified E78.5 ; Essential (primary) hypertension I10 ; Chronic pain syndrome G89.4 ; New onset atrial fibrillation I48.91 ; Peripheral neuropathic pain M79.2 ; Prediabetes R73.03 ; Prostate cancer C61 and Pain of right heel M79.671 ASSESSMENTS Encounter Date Diagnosis Assessment Notes Treatment Notes Treatment Clinical Notes Section Notes 06/27/2024 Hyperlipidemia, unspecified (ICD-10 - E78.5) Acute Concerns/Problem List: 06/27/2024 EKG findings as above new onset atrial fibrillation Discussed chads vascular 2 score, he will be started on Eliquis 5 mg twice a day He will refer to cardiology for further testing and evaluation including echocardiogram He will be referred to podiatric surgeon for his recurrent heel and foot pain I am not convinced this is gout MOLST/HCP Discussed and Filed Of note, some information is being carried forward from prior records for informational purposes only and is being cited so that efficiency, safety and quality of the patient's care is not compromised This note was prepared using voice recognition software and direct typing Please excuse inadvertent radio repairman or typing errors, or uncorrected word substitutions Although every attempt has been made by the provider to proofread this document, occasional misspellings and typographical errors may still be present Due to the previous pandemic, and the use of personal protective equipment (PPE) This may decrease voice recognition accuracy Inadvertent radio repairman errors may occur 06/27/2024 Essential (primary) hypertension (ICD-10 - I10) Acute Concerns/Problem List: 06/27/2024 EKG findings as above new onset atrial fibrillation Discussed chads vascular 2 score, he will be started on Eliquis 5 mg twice a day He will refer to cardiology for further testing and evaluation including echocardiogram He will be referred to podiatric surgeon for his recurrent heel and foot pain I am not convinced this is gout MOLST/HCP Discussed and Filed Of note, some information is being carried forward from prior records for informational purposes only and is being cited so that efficiency, safety and quality of the patient's care is not compromised This note was prepared using voice recognition software and direct typing Please excuse inadvertent radio repairman or typing errors, or uncorrected word substitutions Although every attempt has been made by the provider to proofread this document, occasional misspellings and typographical errors may still be present Due to the previous pandemic, and the use of personal protective equipment (PPE) This may decrease voice recognition accuracy Inadvertent radio repairman errors may occur 06/27/2024 Chronic pain syndrome (ICD-10 - G89.4) Acute Concerns/Problem List: 06/27/2024 EKG findings as above new onset atrial fibrillation Discussed chads vascular 2 score, he will be started on Eliquis 5 mg twice a day He will refer to cardiology for further testing and evaluation including echocardiogram He will be referred to podiatric surgeon for his recurrent heel and foot pain I am not convinced this is gout MOLST/HCP Discussed and Filed Of note, some information is being carried forward from prior records for informational purposes only and is being cited so that efficiency, safety and quality of the patient's care is not compromised This note was prepared using voice recognition software and direct typing Please excuse inadvertent radio repairman or typing errors, or uncorrected word substitutions Although every attempt has been made by the provider to proofread this document, occasional misspellings and typographical errors may still be present Due to the previous pandemic, and the use of personal protective equipment (PPE) This may decrease voice recognition accuracy Inadvertent radio repairman errors may occur 06/27/2024 New onset atrial fibrillation (ICD-10 - I48.91) Acute Concerns/Problem List: 06/27/2024 EKG findings as above new onset atrial fibrillation Discussed chads vascular 2 score, he will be started on Eliquis 5 mg twice a day He will refer to cardiology for further testing and evaluation including echocardiogram He will be referred to podiatric surgeon for his recurrent heel and foot pain I am not convinced this is gout MOLST/HCP Discussed and Filed Of note, some information is being carried forward from prior records for informational purposes only and is being cited so that efficiency, safety and quality of the patient's care is not compromised This note was prepared using voice recognition software and direct typing Please excuse inadvertent radio repairman or typing errors, or uncorrected word substitutions Although every attempt has been made by the provider to proofread this document, occasional misspellings and typographical errors may still be present Due to the previous pandemic, and the use of personal protective equipment (PPE) This may decrease voice recognition accuracy Inadvertent radio repairman errors may occur 06/27/2024 Peripheral neuropathic pain (ICD-10 - M79.2) Acute Concerns/Problem List: 06/27/2024 EKG findings as above new onset atrial fibrillation Discussed chads vascular 2 score, he will be started on Eliquis 5 mg twice a day He will refer to cardiology for further testing and evaluation including echocardiogram He will be referred to podiatric surgeon for his recurrent heel and foot pain I am not convinced this is gout MOLST/HCP Discussed and Filed Of note, some information is being carried forward from prior records for informational purposes only and is being cited so that efficiency, safety and quality of the patient's care is not compromised This note was prepared using voice recognition software and direct typing Please excuse inadvertent radio repairman or typing errors, or uncorrected word substitutions Although every attempt has been made by the provider to proofread this document, occasional misspellings and typographical errors may still be present Due to the previous pandemic, and the use of personal protective equipment (PPE) This may decrease voice recognition accuracy Inadvertent radio repairman errors may occur 06/27/2024 Prediabetes (ICD-10 - R73.03) Acute Concerns/Problem List: 06/27/2024 EKG findings as above new onset atrial fibrillation Discussed chads vascular 2 score, he will be started on Eliquis 5 mg twice a day He will refer to cardiology for further testing and evaluation including echocardiogram He will be referred to podiatric surgeon for his recurrent heel and foot pain I am not convinced this is gout MOLST/HCP Discussed and Filed Of note, some information is being carried forward from prior records for informational purposes only and is being cited so that efficiency, safety and quality of the patient's care is not compromised This note was prepared using voice recognition software and direct typing Please excuse inadvertent radio repairman or typing errors, or uncorrected word substitutions Although every attempt has been made by the provider to proofread this document, occasional misspellings and typographical errors may still be present Due to the previous pandemic, and the use of personal protective equipment (PPE) This may decrease voice recognition accuracy Inadvertent radio repairman errors may occur 06/27/2024 Prostate cancer (ICD-10 - C61) Acute Concerns/Problem List: 06/27/2024 EKG findings as above new onset atrial fibrillation Discussed chads vascular 2 score, he will be started on Eliquis 5 mg twice a day He will refer to cardiology for further testing and evaluation including echocardiogram He will be referred to podiatric surgeon for his recurrent heel and foot pain I am not convinced this is gout MOLST/HCP Discussed and Filed Of note, some information is being carried forward from prior records for informational purposes only and is being cited so that efficiency, safety and quality of the patient's care is not compromised This note was prepared using voice recognition software and direct typing Please excuse inadvertent radio repairman or typing errors, or uncorrected word substitutions Although every attempt has been made by the provider to proofread this document, occasional misspellings and typographical errors may still be present Due to the previous pandemic, and the use of personal protective equipment (PPE) This may decrease voice recognition accuracy Inadvertent radio repairman errors may occur 06/27/2024 Pain of right heel (ICD-10 - M79.671) Acute Concerns/Problem List: 06/27/2024 EKG findings as above new onset atrial fibrillation Discussed chads vascular 2 score, he will be started on Eliquis 5 mg twice a day He will refer to cardiology for further testing and evaluation including echocardiogram He will be referred to podiatric surgeon for his recurrent heel and foot pain I am not convinced this is gout MOLST/HCP Discussed and Filed Of note, some information is being carried forward from prior records for informational purposes only and is being cited so that efficiency, safety and quality of the patient's care is not compromised This note was prepared using voice recognition software and direct typing Please excuse inadvertent radio repairman or typing errors, or uncorrected word substitutions Although every attempt has been made by the provider to proofread this document, occasional misspellings and typographical errors may still be present Due to the previous pandemic, and the use of personal protective equipment (PPE) This may decrease voice recognition accuracy Inadvertent radio repairman errors may occur PLAN OF TREATMENT Medication Medication Name Sig Start Date Stop Date Notes traMADol HCl 50 MG 1 tablet as needed O rally every 6 hours for 30 days Colchicine 0.6 MG TAKE 1 TABLET AT BED TIME. Orally Once a day for 30 days Next Appt Details Provider Name:ORVILLE FLAHERTY, 08/08/2024 02:15:00 PM, [address] [facility] [address], [place], [address], Progress Notes * EDINSON OMALLEY RDOB: [birth year] (73 yo M)Acc No.[id number]:06/27/2024 Progress Notes Patient:??LYSSA EDINSON Mora Provider:??ORVILLE FLAHERTY NP :[id number]?Age:73 Y?Sex:Irina elizalde Date:06/27/2024 Address:[address] [place] [address] [address] [phone] Subjective: * Chief Complaints: * ? * HPI: ?Constitutional:? Patient is here for Chronic Disease Management follow-up visit ?Patient seen and examined. ? Full past medical history, social history, family history, ?allergies and current medications were reviewed and updated. ?Acute Concerns/Problem List: ?06/27/2024 ?currently seeing [facility] ?left knee Surgery was cancelled d/t not passing cardiac workup ?I am requesting records to see exactly what happened ?CARDS*? ON AC? on cardiac exam he was found to be have an irregular rhythm and ? an EKG was done showing a controlled A-fib with PVCs which is a new finding ?Denies any chest pain or palpitations or other cardiovascular symptoms ?We discussed his chads vascular 2 score today and the need to follow-up with cardiology, need for echocardiogram etc. ?Patient has been seen here recently for question gout flares, acute heel pain ?Right heel pain since beginning of january ?pain has improved a little but still reports pain only when he walks on it ?Pain started as heel pain and is more plantar now ?He takes allopurinol 100 mg daily because of his kidneys, he was given colchicine for a few doses ?Is followed by multiple specialists including pain management ?GI for liver cirrhosis, does have history of ascites and not sure ? if he has had paracentesis done in the past ?GI doctor seen last within the past year (Dr. 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 ?Reports blood in stool occasionally ?Discussed colonoscopy and denies wanting one ?MOLST/HCP discussed and filed ?Updated comprehensive labs October 2023 ?CBC is stable ?Platelets of 118, previously 107 ?CBC stable ?Electrolytes renal function LFTs are stable ?Creatinine ranging from 1.3-1.7, GFR 55 ?AST 68, ALT 90 ?PSA 0.1 ?A1c 5.2 ?Total cholesterol 212, LDL is 138, HDL 42, triglycerides 162 ?TSH is 3.1 ?hx of elevated inflammatory markers including CRP and sed rate ?Lyme negative ?Creatinine baseline around 1.6-1.9 ?TPO and TGG, normal ?Health Maintenance ?Denies any previous colorectal screening as mentioned above ?Did get 1 dose of the JJ COVID vaccine, Moderna MRNA booster ?flu 01/2024 ?RSV: 07/2023 ?Shringrix: defers ?Colonoscopy screening: not interested. * ROS:?All Other Systems:?Review of Systems (ROS)??All others negative except those mentioned in HPI.? * Medical History:?? * Medications:??Taking traMADo l HCl 50 MG Tablet 1 tablet as needed Orally every 6 hours , Taking Pregabalin 75 MG Capsule 1 capsule Orally Twice a day , Taking Losartan Potassium 25 MG Tablet 1 tablet Orally Once a day , Notes to Pharmacist: undefined, Taking Melatonin 10 MG Tablet 1 tablet at bedtime as needed with food Orally Once a day , Taking Folic Acid 1 MG Tablet TAKE 2 TABLETS BY MOUTH EVERY DAY , Taking Gabapentin 100 MG Capsule 1 capsule before bedtime Orally Once a day , Taking amLODIPine Besylate 10 MG Tablet TAKE 1 TABLET BY MOUTH EVERY DAY , Taking Vitamin D3 25 MCG (1000 UT) Tablet TAKE 1 TABLET BY MOUTH EVERY DAY , Taking Apixaban 5 MG Tablet 5mg Orally Twice a day , Taking Colchicine 0.6 MG Tablet TAKE 1 TABLET BY MOUTH EVERYDAY AT BEDTIME , Taking Furosemide 20 MG Tablet TAKE 1 TABLET BY MOUTH EVERY DAY , Taking Allopurinol 100 MG Tablet TAKE 1 TABLET BY MOUTH EVERY DAY DIRECTED , Taking Vitamin B Complex - Tablet TAKE 1 TABLET BY MOUTH EVERY DAY , Taking traZODone HCl 50 MG Tablet TAKE 1 TABLET BY MOUTH EVERYDAY AT BEDTIME , Not-Taking predniSONE 50 MG Tablet 1 tablet Orally Once a day Objective: * Examination: ?General Examination: ?GENERAL APPEARANCE:??in no acute distress, well developed, well nourished.??HEAD:??normocephalic, atraumatic.??EYES:??pupils equal, round, reactive to light and accommodation.??EARS:??normal.??ORAL CAVITY:??mucosa moist.??THROAT:??clear.??NECK/THYROID:??neck supple, full range of motion, no cervical lymphadenopathy.??SKIN:??no suspicious lesions, warm and dry.??HEART:??no murmurs, regular rate and rhythm, S1, S2 normal.??LUNGS:??clear to auscultation bilaterally.??ABDOMEN:??normal, bowel sounds present, soft, nontender, nondistended.??EXTREMITIES:??no clubbing, cyanosis, or edema.??NEUROLOGIC:??nonfocal, motor strength normal upper and lower extremities, sensory exam intact.? Assessment: * Assessment: 1.??Hyperlipidemia, unspecif ied - E78.5??2.??Essential (primary) hypertension - I10??3.??Chronic pain syndrome - G89.4??4.??New onset atrial fibrillation - I48.91??5.??Peripheral neuropathic pain - M79.2??6.??Prediabetes - R73.03??7.??Prostate cancer - C61??8.??Pain of right heel - M79.671?? Acute Concerns/Problem List: 06/27/2024 EKG findings as above new onset atrial fibrillation Discussed chads vascular 2 score, he will be started on Eliquis 5 mg twice a day He will refer to cardiology for further testing and evaluation including echocardiogram He will be referred to podiatric surgeon for his recurrent heel and foot pain I am not convinced this is gout MOLST/HCP Discussed and Filed Of note, some information is being carried forward from prior records for informational purposes only and is being cited so that efficiency, safety and quality of the patient's care is not compromised This note was prepared using voice recognition software and direct typing Please excuse inadvertent radio repairman or typing errors, or uncorrected word substitutions Although every attempt has been made by the provider to proofread this document, occasional misspellings and typographical errors may still be present Due to the previous pandemic, and the use of personal protective equipment (PPE) This may decrease voice recognition accuracy Inadvertent radio repairman errors may occur. Plan: * Treatment: 2.??Essential (primary) hype rtension?? Refill Colchicine Tablet, 0.6 MG, TAKE 1 TABLET AT BEDTIME., Orally, Once a day, 30 days, 30, Refills 11.? * Procedure Codes:??41117 NO S HOW OFFICE VISIT * Images: Billing Information: * Visit Code:?? * Procedure Codes:?? 89248 NO SHOW OFFICE VISIT. Care Plan Details* * Sign off status: Pending * Provider:??ORVILLE FLAHERTY NP Date:??08/2024 History and Physical Notes * HPI (History of Present Illness) Category Sub-Category Detail Notes Category Not es Constitutional Patient is here for Chronic Disease Management follow-up visit Patient seen and examined. Full past medical history, social history, family history, allergies and current medications were reviewed and updated. Acute Concerns/Problem List: 06/27/2024 currently seeing [facility] left knee Surgery was cancelled d/t not passing cardiac workup I am requesting records to see exactly what happened CARDS*? ON AC?? on cardiac exam he was found to be have an irregular rhythm and an EKG was done showing a controlled A-fib with PVCs which is a new finding Denies any chest pain or palpitations or other cardiovascular symptoms We discussed his chads vascular 2 score today and the need to follow-up with cardiology, need for echocardiogram etc. Patient has been seen here recently for question gout flares, acute heel pain Right heel pain since beginning of january pain has improved a little but still reports pain only when he walks on it Pain started as heel pain and is more plantar now He takes allopurinol 100 mg daily because of his kidneys, he was given colchicine for a few doses Is followed by multiple specialists including pain management GI for liver cirrhosis, does have history of ascites and not sure if he has had paracentesis done in the past GI doctor seen last within the past year (Dr. Bill) Prostate CA: seen by Urology Serrato, medical oncology 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 Reports blood in stool occasionally Discussed colonoscopy and denies wanting one MOLST/HCP discussed and filed Updated comprehensive labs October 2023 CBC is stable Platelets of 118, previously 107 CBC stable Electrolytes renal function LFTs are stable Creatinine ranging from 1.3-1.7, GFR 55 AST 68, ALT 90 PSA 0.1 A1c 5.2 Total cholesterol 212, LDL is 138, HDL 42, triglycerides 162 TSH is 3.1 hx of elevated inflammatory markers including CRP and sed rate Lyme negative Creatinine baseline around 1.6-1.9 TPO and TGG, normal Health Maintenance Denies any previous colorectal screening as mentioned above Did get 1 dose of the JJ COVID vaccine, Moderna MRNA booster flu 01/2024 RSV: 07/2023 Shringrix: defers Colonoscopy screening: not interested Examination Category Sub-Category Detail Notes Category Not es General Examination GENERAL APPEARANCE: in no ac renny distress, well developed, well nourished HEAD: normocephalic, atrau matic EYES: pupils equal, round, reactive to light and accommodation EARS: normal THROAT: clear NECK/THYROID: neck supple, full ra nge of motion, no cervical lymphadenopathy HEART: no murmurs, regular rate and rhythm, S1, S2 normal LUNGS: clear to auscultatio n bilaterally ABDOMEN: normal, bowel sounds present, soft, nontender, nondistended NEUROLOGIC: nonfocal, motor stre ngth normal upper and lower extremities, sensory exam intact SKIN: no suspicious lesion s, warm and dry EXTREMITIES: no clubbing, cyanosi s, or edema ORAL CAVITY: mucosa moist
--- OUTSIDE RECORDS SUMMARY | 2024-07-14 13:07 | XMS_ITS | Clinical Summary ---
Author Organization Formerly [facility] Address [address] [id number] Care Team Providers Care Transmitter Chief Name Role Phone Demar Calvert MD Primary Care Provider [phone] Allergies No known active allergies Medications Medication Sig Dispensed Refills Start Date End Date Status allopurinol (ZYLOPRIM) 100 MG tablet Take 1 tablet (100 mg total) by mouth. 0 02/15/2015 Active amLODIPine (NORVASC) tablet 10 mg 0 07/25/2020 Active B Complex CAPS 0 03/12/2021 Active folic acid (FOLVITE) tablet 1 mg Take 1 tablet (1,000 mcg total) by mouth. 0 01/15/2016 Active furosemide (LASIX) 20 MG tablet Take 1 tablet (20 mg total) by mouth. 0 02/21/2015 Active losartan (COZAAR) tablet 25 mg Take 0.5 tablets (12.5 mg total) by mouth daily. 0 01/28/2018 Active Melatonin 10 MG TABS Take by mouth. 0 Active traMADol (ULTRAM) 50 MG tablet Take 50 mg by mouth. 0 05/07/2020 Active traZODone (DESYREL) 50 MG tablet 0 03/14/2021 Active colchicine 0.6 MG tablet Take 1 tablet (0.6 mg total) by mouth. 0 Active Cholecalciferol (Vitamin D) 25 MCG (1000 UT) TABS 0 02/27/2021 Active pregabalin (LYRICA) 75 MG capsule Take 1 capsule (75 mg total) by mouth 2 (two) times a day. 0 Active gabapentin (NEURONTIN) 100 MG capsule Take 1 capsule (100 mg total) by mouth daily. 0 Active Active Problems Problem Noted Date Diagnosed Date Prostate cancer 08/17/2022 Social History Tobacco Use Types Packs/Day Years Used Date Smoking Tobacco: Never Smokeless Tobacco: Never Tobacco Cessation:Counseling Given: Not Answered Alcohol Use Standard Drinks/Week Comments Yes 0 (1 standard drink = 0.6 oz pur e alcohol) Occasional Sex and Gender Information Value Date Recorded Sex Assigned at Not on file Gender Identity Not on file Sexual Orientation Not on file Job Start Date Occupation Industry Not on file Not on file Not on file Last Filed Vital Signs Vital Sign Reading Time Taken Comments Blood Pressure 136/88 06/02/2023 1:27 PM EST Pulse 66 06/02/2023 1:27 PM EST Temperature 36.1 ??C (97 ??F) 06/02/2023 1:27 PM EST Respiratory Rate - - Oxygen Saturation 98% 06/02/2023 1:27 PM EST Inhaled Oxygen Concentration - - Weight 103.9 kg (229 lb) 06/02/2023 1:27 PM EST Height 172.7 cm (5' 8 ) 06/02/2023 1:27 PM EST Body Mass Index 34.82 06/02/2023 1:27 PM EST Plan of Treatment Health Maintenance Due Date Last Done Comments Hepatitis C Screening 1948 COVID-19 Vaccine (#1) 1953 Pneumococcal Vaccine (1 of 2 - PCV) 1954 Depression Screening 1960 BMI Counseling 1966 Preventative Health Evaluation 1966 DTap / Tdap / Td (1 - Tdap) 12/27/1967 Shingrix-Zoster Vaccine (1 of 2) 12/27/1967 Colon Cancer Screening (Colonoscopy) 1993 Fall Risk Assessment 2013 RSV Adult > 60+ Yrs or Pregn ant (1 - 1-dose 75+ series) 12/27/2023 Influenza Vaccine (#1) 2024 Hepatitis B Vaccines Aged Out No long er eligible based on patient's age to complete this topic RSV Ped < 20 months Aged Out No longe r eligible based on patient's age to complete this topic Care Teams Transmitter Chief Relationship Specialty Start Date End Date Demar Calvert MD [address] [place] [id number] PCP - General Internal Medicine 04/02/21
--- OUTSIDE RECORDS SUMMARY | 2024-07-14 13:07 | XMS_ITS | Encounter Summary ---
Author Organization [facility] Address [address] [facility] [address] [place] [address] Phone Care Team Providers Care Environmental Engineer Scientist Name Role Phone Demar Calvert MD Primary Care Provider [phone] Encounter Details Date Type Department Care Team (Late Contact Info) Description 08/14/2020 Orders Only [facility] [address] [place] [address] Provider, MD Deidra [address] [place], [place] [id number] Social History Tobacco Use Types Packs/Day Years Used Date Smoking Tobacco: Former Comments:Smoking History Inf o:Unknown Alcohol Use Standard Drinks/Week Comments Yes 0 (1 standard drink = 0.6 oz pure alcohol) Alcoholic Drinks/day: 3 or more drinks per day Sex and Gender Information Value Date Recorded Sex Assigned at Not on file Legal Sex Male 5:09 PM EST Gender Identity Not on file Sexual Orientation Not on file documented as of this encounter Plan of Treatment Upcoming Encounters Date Type Department Care Team (Late Contact Info) Description 07/31/2024 Orders Only [facility] [address] [phone] Bennie Rico MD [address] [facility] [address] [place] [address] Stage 3a chronic kidney disease (HCC); Hypertensive renal disease; Primary gout 09/11/2024 1:30 PM EDT Office Visit [facility] [address] [phone] Bennie Rico MD [address] [address] documented as of this encounter Procedures Procedure Name Priority Date/Time Associated Diagnosis Comments EXT RESULT ENTRY Routine 08/14/2020 documented in this encounter Results * EXT RESULT ENTRY (08/14/2020) us Historical Provider LAB BLOOD ORDERABLES Marifer l Result documented in this encounter Visit Diagnoses Not on filedocumented in this encounter Care Teams Environmental Engineer Scientist Relationship Specialty Start Date End Date Demar Calvert MD [address] [address] PCP - General 06/03/20 documented as of this encounter
--- OUTSIDE RECORDS SUMMARY | 2024-07-14 13:07 | XMS_ITS ---
Author Organization [facility] Address [address] [place] [address] Care Team Providers Care Corporate Compliance Director Name Role Phone Demar Calvert MD Primary Care Provider Active Problems Problem Noted Date Diagnosed Date Prostate cancer 08/17/2022 Current Oncology Plans No current plan information found. Past Plans ONCOLOGY INFUSION THERAPY Plan Name Start Date Discontinue Date Treatment Medications Discontinue Reason Plan Provider [facility]N LEUPROLIDE 45 MG (ELIGARD) EVERY 6 MONTHS 09/09/2022 02/07/2024 leuprolide (ELIGARD) Therapy Complete Fadia Hein MD Radiation Treatments * No radiation treatments are documented for this patient in [facility]. Treatments may have been administered in another system.
--- OUTSIDE RECORDS SUMMARY | 2024-07-14 13:07 | XMS_ITS | Clinical Summary ---
Author Organization [facility] Address [address] [place] [address] Phone Care Team Providers Care Manager Of Regulatory Affairs Name Role Phone Demar Calvert MD Primary Care Provider [phone] Allergies No known active allergies Medications allopurinoL (ZYLOPRIM) 100 mg tablet Take 1 tablet (100 mg total) by mouth. 5 Active amLODIPine (NORVASC) 5 mg tablet 10 mg daily. 6 Active b complex vitamins (Vitamins B Complex) capsule 1 Active cholecalciferol (VITAMIN D-3) 25 mcg (1,000 unit) tablet 1 Active colchicine (COLCRYS) 0.6 mg tablet Take 1 tablet (0.6 mg total) by mouth. Active folic acid (FOLVITE) 1 mg tablet Take 1 tablet (1,000 mcg total) by mouth. 6 Active furosemide (LASIX) 20 mg tablet Take 1 tablet (20 mg total) by mouth. 5 Active gabapentin (NEURONTIN) 100 mg capsule Take 1 capsule (100 mg total) by mouth daily. 2 Active losartan (COZAAR) 25 mg tablet Take 0.5 tablets (12.5 mg total) by mouth daily. 8 Active melatonin 10 mg tablet Take by mouth. Activ e pregabalin (LYRICA) 75 mg capsule Take 1 capsule (75 mg total) by mouth 2 (two) times a day. 2 Active traMADoL (ULTRAM) 50 mg tablet Take 1 Tab by mouth every 6 hours as needed for Pain for up to 28 days. 0 Active Eliquis 5 mg tablet Take 1 tablet (5 mg total) by mouth 2 (two) times a day. 4 Active Lubricant Eye Drops 0.5 % ophthalmic solution Administer 1 drop into both eyes 2 (two) times a day. 4 Active ketorolac (ACULAR) 0.5 % ophthalmic solution Administer 1 drop into both eyes 2 (two) times a day. 4 Active Active Problems Problem Noted Date Diagnosed Date Prostate cancer 08/17/2022 Encounters Date Type Department Care Team Description 04/24/2024 1:15 PM EST Consult Orthopedic Surgery - [address] [phone] Erik Reddy DPM Right foot pain (Primary Dx); Equinus contracture of right ankle; Pes planus of both feet; Plantar fasciitis from Last 3 Months Surgical History Surgery Date Site/Laterality Comments HAND SURGERY PROCEDURE:HAND SURGERY Medical History Medical History Date Comments Gout DX:Gout Hypertension DX:Hypertension Stroke ([facility]/HCC) DX:Stroke ([facility]) Social History Tobacco Use Types Packs/Day Years Used Date Smoking Tobacco: Never Smokeless Tobacco: Never Alcohol Use Standard Drinks/Week Comments Yes 0 (1 standard drink = 0.6 oz pur e alcohol) Sex and Gender Information Value Date Recorded Sex Assigned at Not on file Legal Sex Male 11:17 PM EST Gender Identity Not on file Sexual Orientation Not on file Obstetrics History Last Filed Vital Signs Vital Sign Reading Time Taken Comments Blood Pressure 136/78 04/03/2024 1:03 PM EST Pulse 64 04/03/2024 1:03 PM EST Temperature 36.7 ??C (98 ??F) 04/03/2024 1:03 PM EST Respiratory Rate - - Oxygen Saturation 98% 04/03/2024 1:03 PM EST Inhaled Oxygen Concentration - - Weight 104 kg (229 lb) 04/24/2024 1:43 PM EST Height 172.7 cm (5' 7.99 ) 04/24/2024 1:43 PM ES T Body Mass Index 34.83 04/24/2024 1:43 PM EST Plan of Treatment Upcoming Encounters Date Type Department Care Team (Late st Contact Info) Description 04/03/2025 1:00 PM EST Office Visit [facility] Hematology Oncology [address] [place] [phone] Fadia Hein MD [address] [place] [address] Health Maintenance Due Date Last Done Comments DTaP,Tdap,and Td Vaccines (1 - Tdap) 12/27/1967 Hepatitis A Vaccines (1 of 2 - Risk 2-dose series) 12/27/1967 Pneumococcal Vaccine: 50+ Years (1 of 2 - PCV) 12/27/1967 Zoster Vaccines (1 of 2) 12/27/1967 Hepatitis B Vaccines (1 of 3 - Risk 3-dose series) 2008 Cholesterol Screening (Lipid Panel) 04/26/2022 Colorectal Cancer Screening: Colonoscopy 04/26/2022 Depression Screening 04/26/2022 Falls Risk Assessment 04/26/2022 Hepatitis C Screening 04/26/2022 Social Influencers of Health Screening 04/26/2022 Hypertension/CHF/CAD Annual BMP Blood Test 05/08/2022 COVID-19 Vaccine ( season) 2024 05/21/2021, 08/14/2020 RSV Immunization Patients 60+ Years Old Completed 07/26/2023 Influenza Vaccine Completed 01/26/2024, , 03/11/2022, Additional history exists HIB Vaccines Aged Out No longer eligi ble based on patient's age to complete this topic HPV Vaccines Aged Out No longer eligi ble based on patient's age to complete this topic IPV Vaccines Aged Out No longer eligi ble based on patient's age to complete this topic MMR Vaccines Aged Out No longer eligi ble based on patient's age to complete this topic Meningococcal ACWY Vaccine Aged Out N o longer eligible based on patient's age to complete this topic Meningococcal B Vacine Aged Out No lo nger eligible based on patient's age to complete this topic RSV Immunization Patients Under 20 months Aged Out No longer eligible based on patient's age to complete this topic Varicella Vaccines Aged Out No longer eligible based on patient's age to complete this topic Procedures Procedure Name Priority Date/Time Associated Diagnosis Comments INJECTION TENDON OR LIGAMENT Routine 04/24/2024 1:15 PM EST Plantar fasciitis from Last 3 Months Results * Injection tendon or ligament (04/24/2024 1:15 PM EST) Narrative Erik Reddy DPM - 04/24/2024 1:15 PM EST Erik Reddy DPM ? 04/24/2024 ??8:03 PM Injection tendon or ligament Indications: pain Details: 25 G needle Medications: 1 mL lidocaine (PF) 1 %; 40 mg triamcinolone acetonide 40 mg/mL Informed Consent: ??Laterality: ??Right us Erik Reddy DPM IN CLINIC/BEDSIDE ORDERABLE S Final Result from Last [address] [facility] MEDICAID [place] [id number] Care Teams Manager Of Regulatory Affairs Relationship Specialty Start Date End Date Demar Calvert MD PCP - General Internal Medicine 01/23/20
--- OUTSIDE RECORDS SUMMARY | 2024-07-14 13:07 | XMS_ITS | Encounter Summary ---
Author Organization [facility] Address [address] [facility] [address] [place] [address] Phone Care Team Providers Care Police Liaison Name Role Phone Demar Calvert MD Primary Care Provider [phone] Encounter Details Date Type Department Care Team (Late st Contact Info) Description 11/06/2020 Orders Only [facility] [address] [facility] [address] [place] [address] Bennie Rico MD [address] [address] Stage 3b chronic kidney disease (HCC); Pure hypercholesterolemia, not otherwise specified; Hypertensive renal disease Social History Tobacco Use Types Packs/Day Years [...] Only [facility] [address] [address] Bennie Rico MD [address] [address] Stage 3a chronic kidney disease (HCC); Hypertensive renal disease; Primary gout 09/11/2024 1:30 PM EDT Office Visit [facility] [address] [address] Bennie Rico MD [address] [address] documented as of this encounter Procedures Procedure Name Priority Date/Time Associated Diagnosis Comments PROTEIN / CREATININE RATIO, URINE Routine 01/30/2021 10:50 AM EDT Stage 3b chronic kidney disease (HCC) Pure hypercholesterolemi a, not otherwise specified Hypertensive renal disease VITAMIN D 25 HYDROXY Routine 01/30/2021 10:50 AM EDT Stage 3b chronic kidney disease (HCC) Pure hypercholesterolemi a, not otherwise specified Hypertensive renal disease PTH, INTACT Routine 01/30/2021 10:50 AM EDT Stage 3b chronic kidney disease (HCC) Pure hypercholesterolemi a, not otherwise specified Hypertensive renal disease RENAL FUNCTION PANEL Routine 01/30/2021 10:50 AM EDT Stage 3b chronic kidney disease (HCC) Pure hypercholesterolemi a, not otherwise specified Hypertensive renal disease PROTEIN / CREATININE RATIO, URINE Routine 01/30/2021 documented in this encounter Results * Vitamin D 25 hydroxy (01/30/2021 10:50 AM EDT) Vitamin D, 25-OH, Total 39 30 - 80 ng/mL [facility] ([facility]) Performing Lab Performing Lab [facility] ([email or web address]) Comment: [facility], a member of [address] [address] Fruit Or Nut Grower - Zoë Quick MD Blood (Blood, Venous) 01/30/2021 10:50 AM EDT 01/30/2021 10:50 AM EDT Bennie Rico MD LAB BLOOD ORDERABLES Edited Res ult - Final [place] ([facility] * Urine Protein / creatinine ratio (01/30/2021 10:50 AM EDT) Creatinine, Urine TNP mg/dL [facility] ([facility]) Comment: Testing not performed Reason: PATIENT UNABLE TO VOID Protein Urine Random TNP mg/dL [facility] Comment: Testing not performed Reason: PATIENT UNABLE TO VOID Protein/Creati nine Ratio, Urine TNP 0 - 0.2 [facility] ([facility]) Comment: Testing not performed Reason: PATIENT UNABLE TO VOID Performing Lab Performing Lab [facility] ([facility]) Comment: [employer] [address] Fruit Or Nut Grower - Zoë Quick MD Urine (Urine, Clean Catch) 01/30/2021 10:50 AM EDT 01/30/2021 10:50 AM EDT Narrative [facility] ([facility]) - 01/30/2021 11:57 AM EDT ANOTHER TIME - 01/30/21--RANDI Bennie Rico MD LAB URINE ORDERABLES Edited Res ult - Final Performing Organization Address [facility]/ZIP Co de Phone Number [place] ([facility]) * PTH, intact (01/30/2021 10:50 AM EDT) PTH 49 18 - 88 pg/mL [facility] ([facility]) Blood (Blood, Venous) 01/30/2021 10:50 AM EDT 01/30/2021 10:50 AM EDT Bennie Rico MD LAB BLOOD ORDERABLES Edited Res ult - Final [place] ([facility]) * (ABNORMAL) Renal function panel (01/30/2021 10:50 AM EDT) Glucose 108(H) 70 - 100 mg/dL [facility] (MEDIC[facility]) Comment:Reference range appl icable to fasting specimens only BUN 34(H) 5 - 25 mg/dL [facility] ([facility]) Creatinine 1.91(H) 0.7 - 1.3 mg/dL [facility] ([facility]) GFR Calculated 35 [facility] ([facility]) Comment: If patient is -Senegalese, multiply result by 1.21 Chronic Kidney Disease: < 60 ml/min/1.73 square meters Kidney Failure: < 15 ml/min/1.73 square meters Sodium 139 135 - 145 mEq/L [facility] ([facility]) Potassium 4.2 3.5 - 5.5 mmol/L [facility] ([facility]) Chloride 107 96 - 110 mmol/L [facility] ([facility]) Bicarbonate (CO2) 21 21 - 32 mmol/L [facility] ([facility]) Anion Gap 11 3 - 11 [facility] ([facility]) Calcium 9.2 8.5 - 10.5 mg/dL [facility] ([facility]) Phosphorus 2.9 2.5 - 4.5 mg/dL [facility] ([facility]) Albumin 3.3 3.2 - 5.0 G/dL [facility] ([facility]) Blood (Blood, Venous) 01/30/2021 10:50 AM EDT 01/30/2021 10:50 AM EDT Bennie Rico MD LAB BLOOD ORDERABLES Edited Res ult - Final [facility] ([facility]) * Protein, Total, Random Urine w/Creatinine (Protein/Creat Ratio) (01/30/2021) Creatinine, Urine 41 mg/dL [facility] ([facility]) Protein Urine Random 6 mg/dL [facility] ([facility]) Protein/Creati nine Ratio, Urine 0.15 0 - 0.2 [facility] ([facility]) Performing Lab Performing Lab [facility] ([facility]) Comment: [employer], a member of [address] [address] Fruit Or Nut Grower - Zoë Quick MD 01/30/2021 01/30/2021 12: 49 PM EDT Bennie Rico MD LAB URINE ORDERABLES Final Resu lt [place] ([facility]) documented in this encounter Visit Diagnoses Diagnosis Stage 3b chronic kidney disease (HCC) Pure hypercholesterolemia, not otherwise specified Hypertensive renal disease Stage 3a chronic kidney disease (HCC) Hypertensive renal disease Primary gout documented in this encounter Care Teams Police Liaison Relationship Specialty Start Date End Date Demar Calvert MD [address] [place] [address] PCP - General 06/03/20 documented as of this encounter
--- OUTSIDE RECORDS SUMMARY | 2024-07-14 13:07 | XMS_ITS | Clinical Summary ---
Author Organization [facility] Address [address] [place] [address] Care Team Providers Care Scheduling Specialist Name Role Phone Demar Calvert Primary Care Provider Allergies No known active allergies Medications allopurinoL (ZYLOPRIM) 100 mg tablet SMARTSI Tablet(s) By Mouth Daily 07/22/2022 Active amLODIPine (NORVASC) 10 mg tablet SMARTSI Tablet(s) By Mouth Daily 07/11/2022 Active cholecalciferol 25 mcg (1,000 unit) tablet SMARTSI Tablet(s) By Mouth Daily 08/15/2022 Active colchicine (COLCRYS) 0.6 mg tablet Take 0.6 mg by mouth. Active folic acid (FOLVITE) 1 mg tablet SMARTSI Tablet(s) By Mouth Daily 03/07/2022 Active gabapentin (NEURONTIN) 100 mg capsule 09/30/2022 Active losartan (COZAAR) 25 mg tablet SMARTSI. 5 Tablet(s) By Mouth Daily 08/15/2022 Active melatonin tablet Take by mouth. Active pregabalin (LYRICA) 75 mg capsule 09/30/2022 Active traMADoL (ULTRAM) 50 mg tablet SMARTSI Tablet(s) By Mouth Every 6 Hours PRN 09/11/2022 Active traZODone (DESYREL) 50 mg tablet SMARTSI Tablet(s) By Mouth Every Night 08/01/2022 Active Vitamins B Complex capsule SMARTSI Capsule(s) By Mouth Daily 01/07/2022 Active Hospital, Clinic, or Other Facility Administered Medication Ordered Dose Route Frequency Start Date End Date Status tranexamic acid (TXA) injection 1 g 1 g intraderma Once 10/01/2022 Active Social History Tobacco Use Types Packs/Day Years Used Date Smoking Tobacco: Never Assessed Sex and Gender Information Value Date Recorded Sex Assigned at Not on file Legal Sex Male 9:11 AM EDT Gender Identity Not on file Sexual Orientation Not on file Last Filed Vital Signs Vital Sign Reading Time Taken Comments Blood Pressure 150/80 10/01/2022 8:04 AM EDT Pulse 76 10/01/2022 8:04 AM EDT Temperature - - Respiratory Rate - - Oxygen Saturation - - Inhaled Oxygen Concentration - - Weight - - Height - - Body Mass Index - - Plan of Treatment Health Maintenance Due Date Last Done Comments Cologuard 1948 Colon Cancer Screening 1950 Colonoscopy 1948 FOBT / Fit Test 1948 Hepatitis C Screening 1948 Sigmoidoscopy 1948 DTaP,Tdap,and Td Vaccines (1 - Tdap) 1970 Pneumococcal Vaccine: 50+ Ye ars (1 of 1 - PCV) 1998 Zoster Vaccines (1 of 2) 1998 Hepatitis B Vaccines (1 of 3 - Risk 3-dose series) 2008 RSV Vaccine (60+ years old a nd patients) (1 - 1-dose 75+ series) 12/27/2023 COVID-19 Vaccine (3 - season) 2024, 08/14/2020 Influenza Vaccine (#1) 2024 03/11/2022, 2020 Alcohol/Substance Use Screening 05/24/2024 Depression Screening and Follow-Up 05/24/2024 Health Care Proxy Review 05/24/2024 Social Drivers of Health Annual Screening 05/24/2024 Insurance [facility] MEDICARE Care Teams Scheduling Specialist Relationship Specialty Start Date End Date Demar Calvert [address] [place] [id number] PCP - General Internal Medicine 09/03/22
--- OUTSIDE RECORDS SUMMARY | 2024-07-14 13:07 | XMS_ITS | Referral Summary ---
Author Organization [facility] Address [address] [place] [address] Care Team Providers Care Envelope Sealer Name Role Phone Demar Calvert Primary Care Provider [phone] Allergies No known active allergies Medications allopurinoL [...] Mass Index - - Plan of Treatment Not on file Insurance [facility] MEDICARE Care Teams Envelope Sealer Relationship Specialty Start Date End Date Demar Calvert [address] [place] [phone] PCP - General Internal Medicine 09/03/22
--- OUTSIDE RECORDS SUMMARY | 2024-07-14 13:07 | XMS_ITS | Patient Health Record ---
Author Organization [facility] [place] Address [address] [place] [address] Care Team Providers Care Marble Cutter Operator Name Role Phone Yoli ALCAZAR, Jimmy Primary Care Provider Kandace Aguilar Unavailable [phone] Allergies No Known Allergies Reason For Referral No Information Medications Medication SIG (Take, Route, Frequency, Duration) Notes Start Date End Date Status Colchicine 0.6 MG Oral for 90 Active Folic Acid 1 MG 1 tablet Orally Once a day for 30 day(s) 11/07/2018 Active amLODIPine Besylate 10 MG Oral for 90 Active Calcium 500 +D Activ e Eliquis 5 MG as directed Orally Active Vitamin D3 1000 UNIT 1 tablet Orally Onc e a day for 30 day(s) 11/07/2018 Active Allopurinol 100 MG Oral for 90 Active Ndgzwpb-Fwwqagqdlm-Qpryn Seed 900-100-100 MG as directed Orally Ac tive Super B Complex/Vitamin C - as directed Orally Active traZODone HCl 100 MG Oral for 90 Active Gabapentin 300 MG Oral for 90 Active Losartan Potassium 25 MG Oral for 90 Active Furosemide 20 MG Oral for 90 A ctive Social History Tobacco Use: Social History Observation [...] Tobacco non-user Current no nsmoker Vital Signs Blood pressure diastolic 62 mm Hg 06/06/2024 Height 5ft 8in in 06/06/2024 Blood pressure systolic 134 mm Hg 06/06/2024 Weight 225 lbs 06/06/2024 BMI 34.21 kg/m2 06/06/2024 Procedures Procedure Date Ordered Date Performed Result Body Sit e [id number] Plate 06/06/2024 N/A [id number] Plate Each Additional 06/06/2024 N/A Encounters Encounter Location Date Provider [facility] [address] [facility] [address] [place] [address] 06/06/2024 [facility] Sultana [facility] L60.[facility] [address] [place] [address] 03/20/2024 Kandace Sultana Assessments Encounter Date Diagnosis (ICD Code) Assessment Notes Treatment Notes Treatment Clinical Notes Section Notes 06/06/2024 Ingrowing nail (ICD-10 - L60.0) Plan Of Treatment Pending Test Test Name Order Date X ray : Foot, left 3V 11/08/2018 X ray : Foot, right 3V 11/08/2018 [id number] Plate 06/06/2024 [id number] Plate Each Additional Insurance Providers Payer Name Payer Address Payer Phone Subscriber Number Group Number Insured Name Patient Relationship to Insured Coverage Start Date Coverage End Date [facility] [employer] Claims [address] [id number] Howard Stinson Self - patient is the insured Medical (General) History Medical History History ICD Code Arthritis Gout Kidney disease Liver disease Stroke Measles Mumps Chicken pox Surgical History Surgery Date(Month/Year) wrist surgery 11/01/17
== END 2024-07-14 12:58 | disposition home or self-care (01) ==
PROVIDERS: PCP Internal Medicine; Visit Provider Psychiatry & Neurology Neurology
DX: G62.9 Polyneuropathy, unspecified (principal); G47.00 Insomnia, unspecified; M79.671 Pain in right foot
CPT/HCPCS: 99214

== ENCOUNTER → 2024-07-14 12:27 | Outpatient (BNVA) | payer MEDICARE, MEDICAID, SELFPAY | PROVIDERS: PCP Internal Medicine; Visit Provider Psychiatry & Neurology Neurology | DX: G62.9 Polyneuropathy, unspecified (principal); G47.00 Insomnia, unspecified; M79.671 Pain in right foot | CPT/HCPCS: 99212 ==